=== PATIENT | male | born 1965 | race Caucasian/White ===

== ENCOUNTER 2019-06-19 10:53 | Emergency (ER) | payer OTHER ==
[~2019-06-19] VITALS: Ht 182.9 cm; Wt 113.4 kg
[2019-06-19] MEDS ORDERED: ATORVASTATIN CA10 MG PO (11:14)
[2019-06-19] MEDS ORDERED: LISINOPRIL-HCT1 EACH PO (11:14)
[2019-06-19] MEDS ORDERED: METHYLPREDNISOLO4 M1 PO (13:50)
[2019-06-19] MEDS ORDERED: NORCO 7.5-3251 EACH PO (13:50)
== END 2019-06-19 13:57 | disposition home or self-care (01) ==
LOC: ED 10:53
DX: M54.42 Lumbago with sciatica, left side (principal); I10 Essential (primary) hypertension; E78.00 Pure hypercholesterolemia, unspecified; Z79.899 Other long term (current) drug therapy
CPT/HCPCS: 96372; 99283-25; J1885

== ENCOUNTER 2024-07-30 10:10 | Emergency (ER) | payer OTHER ==
[~2024-07-30] VITALS: Ht 182.9 cm; Wt 107.9 kg
[~2024-07-30 10:10] MED LIST: ATORVASTATIN CA10 MG PO; LISINOPRIL-HCT1 EACH PO; METHYLPREDNISOLO4 M1 PO; NORCO 7.5-3251 EACH PO
[2024-07-30] MEDS ORDERED: POLYMYXIN B-TMP10 ML OPTH (10:41)
[2024-07-30] MEDS ORDERED: FLUORESCEIN SOD 1 EA STRP OS ONE (11:15)
[2024-07-30] MEDS ORDERED: FLUORESCEIN SOD 1 EA STRP OD ONE (11:15)
[2024-07-30] MEDS ORDERED: TETRACAINE HCL 0.5% 4 ML BTL OD ONE (11:15)
[2024-07-30 12:17] VITALS: BP 148/93
== END 2024-07-30 12:18 | disposition home or self-care (01) ==
LOC: ED 10:10
DX: H10.9 Unspecified conjunctivitis (principal); I10 Essential (primary) hypertension; E78.00 Pure hypercholesterolemia, unspecified; Z79.899 Other long term (current) drug therapy
CPT/HCPCS: 99283